=== PATIENT | female | born 1940 | race Two or more races ===

== ENCOUNTER 2025-09-06 11:16 | Inpatient (IN) | payer OTHER ==
[~2025-09-06] VITALS: Ht 154.9 cm; Wt 77.6 kg
--- NOTE | 2025-09-06 11:31 | ECG ---
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
[2025-09-06] MEDS: AMIODARONE BOLUS KIT 100 ML IV ONE (11:49)
--- NOTE | 2025-09-06 11:59 | ED.PDOC ---
History of Present Illness HPI Comments 84F presents to the ER w/ w/ prior MHx of HTN and the c/c of palpitations. Pt reports on sitting down and watching T.V. yesterday when she had a sudden onset of palpitations and "feels shaky". Pt states on having similar symptoms in November of 2024 for which was undiagnosed. Pt does have mild bilateral LE edema. Denies any other symptoms at this time. Denies chills, fever, N/V/D, SOB. Denies any other associated symptom's, modifiers, or recent injuries or sick contact at this time. Chief Complaint: Palpitations Time Seen by MD: 12:00 Reviewed Notes: Nurses Notes, Medications, Allergies Allergies: Coded Allergies: Simvastatin (Verified Allergy, Unknown, 09/06/25) Information Source: Patient Mode of Arrival: Ambulatory Severity: Moderate Timing: Hours Duration: Since onset, Hours Prehospital treatment: None Past Medical History PAST MEDICAL HISTORY: HTN Surgical History: Denies all surgeries RAILROAD CAR CHECKER History: No Pertinent RAILROAD CAR CHECKER History Family History Family History: Reviewed,noncontributory to illness, Unknown Social History Smoker: Non-Smoker Alcohol: Denies ETOH Use Drugs: Denies Drug Use Lives In: Home Constitutional: denies: chills, diaphoresis, fatigue, fever, malaise, sweats, weakness, others EENTM: denies: blurred vision, double vision, ear bleeding, ear discharge, ear drainage, ear pain, ear ringing, eye pain, eye redness, hearing loss, mouth pain, mouth swelling, nasal discharge, nose bleeding, nose congestion, nose pain, photophobia, tearing, throat pain, throat swelling, voice changes, others Respiratory: denies: cough, hemoptysis, orthopnea, SOB at rest, shortness of breath, SOB with excertion, stridor, wheezing, others Cardiovascular: reports: edema (bilateral LE), palpitations; denies: chest pain, dizzy spells, diaphoresis, Dyspnea on exertion, irregular heart beat, left arm pain, lightheadedness, PND, syncope, others Gastrointestinal: denies: abdomen distended, abdominal pain, blood streaked bowels, constipated, diarrhea, dysphagia, difficulty swallowing, hematemesis, melena, nausea, poor appetite, poor fluid intake, rectal bleeding, rectal pain, vomiting, others Genitourinary: denies: abnormal vagina bleeding, burning, dyspareunia, dysuria, flank pain, frequency, hematuria, incontinence, pain, , vagina discharge, urgency, others Neurological: denies: dizziness, fainting, headache, left sided numbness, left sided weakness, numbness, paresthesia, pre-existing deficit, right sided numbness, right sided weakness, seizure, speech problems, tingling, tremors, weakness, others Musculoskeletal: denies: back pain, gout, joint pain, joint swelling, muscle pain, muscle stiffness, neck pain, others Integumetry: denies: bruises, change in color, change in hair/nails, dryness, laceration, lesions, lumps, rash, wounds, others Allergic/Immunocompromised: denies: Difficulty Healing, Frequent Infections, Hives, Itching, others Hematologic/Lymphatic: denies: anemia, blood clots, easy bleeding, easy bruising, swollen glands, others Endocrine: denies: excessive hunger, excessive sweating, excessive thirst, excessive urination, flushing, intolerance to cold, intolerance to heat, unexplained weight gain, unexplained weight loss, others Psychiatric: denies: anxiety, bipolar disorder, depression, hopeless, panic disorder, schizophrenia, sleepless, suicidal, others All Other Systems: Reviewed and Negative Physical Exam General Appearance: Moderate Distress, Normal HEENT: Normal ENT Inspection, Pharynx Normal, TMs Normal Neck: Full Range of Motion, Non-Tender, Normal, Normal Inspection Respiratory: Chest Non-Tender, Lungs Clear, No Accessory Muscle Use, No Respiratory Distress, Normal Breath Sounds Cardiovascular: Irregular, No Edema, No JVD, No Murmur, No Gallop, Normal Peripheral Pulses Breast Exam: Deferred Gastrointestinal: No Organomegaly, Non Tender, No Pulsatile Mass, Normal Bowel Sounds, Soft Genitalia: Deferred Pelvic: Deferred Rectal: Deferred Extremities: No calf tenderness, Normal capillary refill, Normal inspection, Normal range of motion, Non-tender, No pedal edema Musculoskeletal : Apperance: Normal Neurologic: Alert, 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 Was a procedure done?: No EKG EKG : Pulse Rate (adult): 131 [place]: Normal Cardiac Rhythm: Afib Block: None Hypertrophy: None ST: Normal Comments RVR Differential Dx Considerations may include: Atrial fibrillation Electrolyte imbalance X-Ray, Labs, Meds, VS Vital Signs Date Time Temp Pulse Resp B/P (MAP) Pulse Ox O2 Delivery O2 Flow Rate FiO2 09/06/25 15:04 104 16 124/72 (89) 96 09/06/25 14:26 105 09/06/25 13:05 119 09/06/25 12:36 111 09/06/25 12:12 98.4 100 15 116/52 (73) 95 98.4 09/06/25 11:59 131 09/06/25 11:35 Room Air* 0 21 09/06/25 11:20 97.5 142 20 145/100 94 97.5 09/06/25 11:20 131 Lab Test 09/06/25 15:36 09/06/25 12:58 09/06/25 11:56 Range/Units Troponin I High Sensitivity 6 5 6 </=34 ng/L White Blood Count 6.0 4.4-10.8 10^3/uL Red Blood Count 3.83 L 4.0-5.20 10^6/uL Hemoglobin 12.6 12.2-16.2 g/dL Hematocrit 37.8 36.0-46.0 % Mean Corpuscular Volume 98.7 80.0-100.0 fL Mean Corpuscular Hemoglobin 32.8 H 28.0-32.0 pg Mean Corpuscular Hemoglobin Concent 33.2 32.0-36.0 g/dL Red Cell Distribution Width 13.5 11.8-14.3 % Platelet Count 248 140-450 10^3/uL Mean Platelet Volume 8.2 6.9-10.8 fL Neutrophils (%) (Auto) 76.4 37.0-80.0 % Lymphocytes (%) (Auto) 13.3 10.0-50.0 % Monocytes (%) (Auto) 7.9 0.0-12.0 % Eosinophils (%) (Auto) 2.0 0.0-7.0 % Basophils (%) (Auto) 0.4 0.0-2.0 % Neutrophils # (Auto) 4.6 1.6-8.6 10 ^3/uL Lymphocytes # (Auto) 0.8 0.4-5.4 10 ^3/uL Monocytes # (Auto) 0.5 0-1.3 10 ^3/uL Eosinophils # (Auto) 0.1 0-0.8 10 ^3/uL Basophils # (Auto) 0 0-0.2 10 ^3/uL Nucleated Red Blood Cells 0.2 % Sodium Level 143 136-145 mmol/L Potassium Level 4.4 3.5-5.1 mmol/L Chloride Level 110 H 98-107 mmol/L Carbon Dioxide Level 20 20-31 mmol/L Anion Gap 13 5-15 Blood Urea Nitrogen 19 9-23 mg/dL Creatinine 1.15 H 0.550-1.02 mg/dL Glomerular Filtration Rate Calc 47 >90 mL/min BUN/Creatinine Ratio 16.5 10.0-20.0 Serum Glucose 122 H 74-106 mg/dL Calcium Level 10.2 8.7-10.4 mg/dL Current Medications Medications (Trade) Dose Ordered Sig/Franci Route Start Time Stop Time Status Last Admin Amiodarone HCl 100 ml @ 600 mls/hr ONCE ONCE IV 09/06/25 11:45 09/06/25 11:54 DC 09/06/25 11:49 Amiodarone HCl 250 ml @ 33.33 mls/ hr Q7H31M ONCE IV 09/06/25 12:00 09/06/25 19:30 09/06/25 12:14 [place] [id number] Ph: [phone] DIAGNOSTIC IMAGING Diagnostic Imaging Report : [id number] Signed PATIENT: MARI WAN ACCT: [id number] UNIT: [id number] : 1940 LOC: ER ROOM / BED: / AGE / SEX: 84 / F ADM STATUS: REG ER SERVICE 1144 ORDERING PHYSICIAN: FORTUNATO MAGANA MD PROCEDURE(s): CXRP - CHEST PORTABLE REASON: sob ORDER NUMBER(s): [id number], ACCESSION NUMBER(s): [id number] XY CHEST PORTABLE, HISTORY: sob COMPARISON: None None TECHNICAL DATA: 1 view of the chest was obtained. FINDINGS: Lines and tubes: None Cardiomediastinal silhouette: normal Pulmonary vasculature: normal Lung expansion: normal Lung airspace: normal Lung interstitium: normal Pleura: normal Pneumothorax: no Bones: Unremarkable Other: no IMPRESSION: No acute intrathoracic abnormality. ATED BY: BRYAN ISLAS MD DICTATED DATE/TIME: 09/06/251213 SIGNED BY: BRYAN ISLAS MD SIGNED DATE/TIME: 09/06/251213 CC: Patient alert. Complaining of palpitation. EKG does show atrial fibrillation. Answering questions pain Placed on amiodarone. Spoke with [place] physician. She was approved to be admitted in this hospital [phone]. Time of 1ST Reevaluation: 12:30 Reevaluation 1ST: Unchanged Patient Education/Counseling: Diagnosis, Treatment, Prognosis Family Education/Counseling: No Family Present SEPSIS Sepsis Screen Date sepsis recognized/suspect: Sep 06, 2025 Time Sepsis recognized/suspect: 1124 Recent Procedure: No On Antibiotic Therapy: No Respiratory Rate >20: No Heart Rate >90: Yes Temp<36 C (96.8 F) or >38.3 C: No SBP <90 or MAP <65 mmHG: No New Acute Mental Status Change: No Is the patient on CPAP, BIPAP,: No Physician Orders Electrocardigram (09/06/25 11:29) Electrocardigram (09/06/25 12:29) Electrocardigram (09/06/25 14:29) Chest Portable (09/06/25 11:44) Amiodarone 450mg/250ml Ae (Cordarone) (09/06/25 12:00) Vital Signs Date Time Temp Pulse Resp B/P (MAP) Pulse Ox O2 Delivery O2 Flow Rate FiO2 09/06/25 15:04 104 16 124/72 (89) 96 09/06/25 14:26 105 09/06/25 13:05 119 09/06/25 12:36 111 09/06/25 12:12 98.4 100 15 116/52 (73) 95 98.4 09/06/25 11:59 131 09/06/25 11:35 Room Air* 0 21 09/06/25 11:20 97.5 142 20 145/100 94 97.5 09/06/25 11:20 131 Laboratory Tests Test 09/06/25 11:56 White Blood Count 6.0 10^3/uL (4.4-10.8) Medications Medications Dose Ordered Sig/Franci Route Start Time Stop Time Status Last Admin Dose Admin Amiodarone HCl 100 ml @ 600 mls/hr ONCE ONCE IV 09/06/25 11:45 09/06/25 11:54 DC 09/06/25 11:49 Amiodarone HCl 250 ml @ 33.33 mls/ hr Q7H31M ONCE IV 09/06/25 12:00 09/06/25 19:30 09/06/25 12:14 Departure 1 Departure Time of Disposition: 17:24 Impression: Primary Impression: Atrial fibrillation Qualified Codes: I48.0 - Paroxysmal atrial fibrillation Disposition: ADMITTED INPATIENT Admit to: Med Surg Condition: Guarded Critical Care Note Critical Care Time?: Yes (90 min-critical care time only) Stability Stability form required: No Heart Score Heart Score: Heart Score Response (Comments) Value History Slightly Suspicious 0 EKG Normal 0 Age >65 2 Risk Factors >3 or Hx ASHD 2 Troponin Normal limit 0 Total 4 I personally scribed for FORTUNATO MAGANA MD ([email or web address]) on 09/06/25 at 11:59. Electronically submitted by Steven Slade ([email or web address]). I personally scribed for FORTUNATO MAGANA MD ([email or web address]) on 09/06/25 at 13:22. Electronically submitted by Loraine Calix ([email or web address]). FORTUNATO MAGANA MD Sep 06, 2025 11:59
--- NOTE | 2025-09-06 12:16 | DVH ---
XY CHEST PORTABLE, HISTORY: sob COMPARISON: None None TECHNICAL DATA: 1 view of the chest was obtained. FINDINGS: Lines and tubes: None Cardiomediastinal silhouette: normal Pulmonary vasculature: normal Lung expansion: normal Lung airspace: normal Lung interstitium: normal Pleura: normal Pneumothorax: no Bones: Unremarkable Other: no IMPRESSION: No acute intrathoracic abnormality.
[2025-09-06 12:22] LABS: Hematocrit 37.8 % (36.0-46.0); Hemoglobin 12.6 g/dL (12.2-16.2); Mean Corpuscular Hemoglobin 32.8 pg (28.0-32.0); Mean Corpuscular Volume 98.7 fL (80.0-100.0); Nucleated Red Blood Cells % 0.2 %
[2025-09-06 12:28] LABS: Potassium 4.4 mmol/L (3.5-5.1); Sodium 143 mmol/L (136-145)
[2025-09-06 12:29] LABS: Anion Gap 13 (5-15)
[2025-09-06 12:30] LABS: Calcium 10.2 mg/dL (8.7-10.4)
[2025-09-06 12:35] LABS: BUN/Creatinine Ratio 16.5 (10.0-20.0); Blood Urea Nitrogen 19 mg/dL (9-23); Carbon Dioxide 20 mmol/L (20-31); Chloride 110 mmol/L (98-107); Glucose 122 mg/dL (74-106)
--- NOTE | 2025-09-06 13:14 | ECG ---
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
[2025-09-06] MEDS ORDERED: ACETAMINOPHEN 325 MG TAB PO PRN (19:45)
[2025-09-06] MEDS ORDERED: ONDANSETRON HCL 4 MG/2 ML VIAL IV PRN (19:45)
[2025-09-06] MEDS ORDERED: NITROGLYCERIN 0.4 MG SL TAB SL PRN (19:45)
[2025-09-06] MEDS ORDERED: MORPHINE SULFATE INJ 2 MG/ml SYRG IV PRN (19:45)
--- NOTE | 2025-09-06 21:14 | DVHHP2 ---
History of Present Illness Reason for Visit: Palpitations History of Present Illness 84-year-old female presents for evaluation of palpitations. Patient endorses developing palpitations since yesterday afternoon around 6:00 p.m.. She states symptoms continued today and was advised by her primary care provider to present for further evaluation. No other acute complaints reported. Past Medical History Hypertension Past Surgical History Denies Family History Noncontributory Smoke: No ALCOHOL: none Drugs: None Lives: with Family Review of Systems Review of Systems Review of systems are currently negative otherwise addressed in HPI. Allergies: Coded Allergies: Simvastatin (Verified Allergy, Unknown, 09/06/25) Medications Current Medications Medications Dose Ordered Sig/Franci Route Start Time Stop Time Status Last Admin Dose Admin Ondansetron HCl 4 mg Q4HP PRN IV 09/06/25 19:45 Enoxaparin Sodium 40 mg DAILY SC 09/07/25 10:00 Acetaminophen 650 mg Q6HP PRN PO 09/06/25 19:45 Nitroglycerin 0.4 mg Q5MINP PRN SL 09/06/25 19:45 Morphine Sulfate 2 mg Q30M PRN IV 09/06/25 19:45 Exam Vital Signs Vital Signs Date Time Temp Pulse Resp B/P (MAP) Pulse Ox O2 Delivery O2 Flow Rate FiO2 09/06/25 19:43 98.6 112 14 134/51 (78) 95 98.6 09/06/25 19:30 Room Air* 0 21 Exam Gen: 84-year-old female in mild distress. Skin: Warm, dry, normal color and texture, no rash. HEENT: Normocephalic atraumatic, mucous membranes moist and pink. Neck: Cervical and supraclavicular nodes normal without enlargement, trachea is midline, thyroid gland is normal without masses. Pulmonary: Clear to auscultation and percussion bilaterally. Cardiac: Irregular rhythm Abdomen: Soft, nontender, nondistended, bowel sounds present all 4 quadrants, no guarding, no rigidity, no organomegaly. Extremities: No cyanosis, clubbing, no edema Neuro: Cranial nerves II through XII grossly intact, normal affect and speech, no focal motor deficits. Labs/Xrays ORDERING PHYSICIAN: FORTUNATO MAGANA MD PROCEDURE(s): CXRP - CHEST PORTABLE REASON: sob ORDER NUMBER(s): [id number], ACCESSION NUMBER(s): [id number] XY CHEST PORTABLE, HISTORY: sob COMPARISON: None None TECHNICAL DATA: 1 view of the chest was obtained. FINDINGS: Lines and tubes: None Cardiomediastinal silhouette: normal Pulmonary vasculature: normal Lung expansion: normal Lung airspace: normal Lung interstitium: normal Pleura: normal Pneumothorax: no Bones: Unremarkable Other: no IMPRESSION: No acute intrathoracic abnormality. Labs Test 09/06/25 15:36 09/06/25 11:56 Range/Units Troponin I High Sensitivity 6 </=34 ng/L White Blood Count 6.0 4.4-10.8 10^3/uL Red Blood Count 3.83 L 4.0-5.20 10^6/uL Hemoglobin 12.6 12.2-16.2 g/dL Hematocrit 37.8 36.0-46.0 % Mean Corpuscular Volume 98.7 80.0-100.0 fL Mean Corpuscular Hemoglobin 32.8 H 28.0-32.0 pg Mean Corpuscular Hemoglobin Concent 33.2 32.0-36.0 g/dL Red Cell Distribution Width 13.5 11.8-14.3 % Platelet Count 248 140-450 10^3/uL Mean Platelet Volume 8.2 6.9-10.8 fL Neutrophils (%) (Auto) 76.4 37.0-80.0 % Lymphocytes (%) (Auto) 13.3 10.0-50.0 % Monocytes (%) (Auto) 7.9 0.0-12.0 % Eosinophils (%) (Auto) 2.0 0.0-7.0 % Basophils (%) (Auto) 0.4 0.0-2.0 % Neutrophils # (Auto) 4.6 1.6-8.6 10 ^3/uL Lymphocytes # (Auto) 0.8 0.4-5.4 10 ^3/uL Monocytes # (Auto) 0.5 0-1.3 10 ^3/uL Eosinophils # (Auto) 0.1 0-0.8 10 ^3/uL Basophils # (Auto) 0 0-0.2 10 ^3/uL Nucleated Red Blood Cells 0.2 % Sodium Level 143 136-145 mmol/L Potassium Level 4.4 3.5-5.1 mmol/L Chloride Level 110 H 98-107 mmol/L Carbon Dioxide Level 20 20-31 mmol/L Anion Gap 13 5-15 Blood Urea Nitrogen 19 9-23 mg/dL Creatinine 1.15 H 0.550-1.02 mg/dL Glomerular Filtration Rate Calc 47 >90 mL/min BUN/Creatinine Ratio 16.5 10.0-20.0 Serum Glucose 122 H 74-106 mg/dL Calcium Level 10.2 8.7-10.4 mg/dL SEPSIS Sepsis Screen Date sepsis recognized/suspect: Sep 06, 2025 Time Sepsis recognized/suspect: 1123 Recent Procedure: No On Antibiotic Therapy: No Respiratory Rate >20: No Heart Rate >90: Yes Temp<36 C (96.8 F) or >38.3 C: No SBP <90 or MAP <65 mmHG: No New Acute Mental Status Change: No Is the patient on CPAP, BIPAP,: No Physician Orders Amiodarone 450mg/250ml Ae (Cordarone) (09/06/25 19:45) * Cardiology Consult (09/06/25:32) Basic Metabolic Panel (09/07/25 04:00) Admit (09/06/25:32) Ondansetron Hcl (Zofran) (09/06/25 19:45) Enoxaparin Sodium (Lovenox) (09/07/25 10:00) Cardiac Diet-2gna,Lofat,Lochol (09/07/25 Breakfast) Echo 2d Mode Cardiac Dop (09/06/25:32) Condition: Fair (09/06/25:32) Acetaminophen Tablet (Tylenol Tablet) (09/06/25 19:45) Bedrest With Bathroom Privileg (09/06/25:32) Nitroglycerin Sublingual (Ntrostat Subli (09/06/25 19:45) Morphine Sulfate Injection (09/06/25 19:45) Stat Ekg For Chest Pain (09/06/25:32) Notify Md Of Changes From Base (09/06/25 19:32) Compensation And Hris Analyst For 24 Hours (09/06/25 19:32) Emergency Dysrhythmia Protocol (09/06/25:32) Rhythm Strips Once Every Shift (09/06/25 19:32) Oxygen By Nasal Cannula (09/06/25 19:32) Hydrochlorothiazide Tablet (Hydrochlorot (09/07/25 10:00) Amlodipine Tablet (Norvasc Tablet) (09/07/25 10:00) Lisinopril Tablet (Zestril Tablet) (09/07/25 10:00) Pravastatin Sodium Tablet (Pravachol Tab (09/06/25 22:00) Spironolactone (Aldactone) (09/07/25 10:00) (Nf) Bisoprolol (09/07/25 10:00) Vital Signs Date Time Temp Pulse Resp B/P (MAP) Pulse Ox O2 Delivery O2 Flow Rate FiO2 09/06/25 19:43 98.6 112 14 134/51 (78) 95 98.6 09/06/25 19:30 Room Air* 0 21 09/06/25 18:00 106 17 127/68 (87) 98 09/06/25 17:33 103 09/06/25 15:04 104 16 124/72 (89) 96 09/06/25 14:26 105 Laboratory Tests Test 09/06/25 11:56 White Blood Count 6.0 10^3/uL (4.4-10.8) Medications Medications Dose Ordered Sig/Franci Route Start Time Stop Time Status Last Admin Dose Admin Amiodarone HCl 100 ml @ 600 mls/hr ONCE ONCE IV 09/06/25 11:45 09/06/25 11:54 DC 09/06/25 11:49 600 MLS/HR Amiodarone HCl 250 ml @ 33.33 mls/ hr Q7H31M ONCE IV 09/06/25 12:00 09/06/25 19:30 DC 09/06/25 12:14 33.33 MLS/HR Amiodarone HCl 250 ml @ 33.33 mls/ hr Q7H31M ONCE IV 09/06/25 19:45 09/07/25 03:15 09/06/25 19:47 33.33 MLS/HR Assessment/Plan Assessment/Plan Assessment AFib with RVR Hypertension Acute kidney injury Plan Admit the patient to telemetry to the hospitalist Continue amiodarone drip Cardiology consultation Resume home medications Continue treatment per orders. Plan discussed with: Patient My Orders Orders - MICKIE TAM Procedure Category Date Status Time * Cardiology Consult CONS 09/06/25 Transmitted 19:32 Basic Metabolic Panel LAB 09/07/25 Verified 04:00 Admit ADMIT 09/06/25 Transmitted 19:32 Ondansetron Hcl PHA 09/06/25 In Process (Zofran) 19:45 Enoxaparin Sodium PHA 09/07/25 In Process (Lovenox) 10:00 Cardiac DIET 09/07/25 Transmitted Diet-2gna,Lofat,Lochol Breakfast Echo 2d Mode Cardiac US 09/06/25 Logged DOP 19:32 Condition: Fair MAN 09/06/25 In Process 19:32 Acetaminophen Tablet PHA 09/06/25 In Process (Tylenol Tablet) 19:45 Bedrest With Bathroom MAN 09/06/25 In Process Privileg 19:32 Nitroglycerin PHA 09/06/25 In Process Sublingual (Ntrostat 19:45 Morphine Sulfate PHA 09/06/25 In Process Injection 19:45 Stat Ekg For Chest MAN 09/06/25 In Process Pain 19:32 Notify Of Changes [facility] 09/06/25 In Process From Base 19:32 Compensation And Hris Analyst For [facility] 09/06/25 In Process 24 Hours 19:32 Emergency Dysrhythmia [facility] 09/06/25 In Process Protocol 19:32 Rhythm Strips Once [facility] 09/06/25 In Process Every Shift 19:32 Oxygen By Nasal RT 09/06/25 Transmitted Cannula 19:32 Hydrochlorothiazide PHA 09/07/25 Verified Tablet (Hydrochlorot 10:00 Amlodipine Tablet PHA 09/07/25 Verified (Norvasc Tablet) 10:00 Lisinopril Tablet PHA 09/07/25 Verified (Zestril Tablet) 10:00 Pravastatin Sodium PHA 09/06/25 Verified Tablet (Pravachol Tab 22:00 Spironolactone PHA 09/07/25 Verified (Aldactone) 10:00 (Nf) Bisoprolol PHA 09/07/25 Verified 10:00 Date of Service: Sep 06, 2025 Billing Provider: MICKIE TAM Common Visit Codes: [id number] INP/OBS CARE (HIGH) MICKIE TAM Sep 06, 2025 21:13
[2025-09-06 21:38] LABS: Triglycerides 151 mg/dL (< 150)
[2025-09-06 21:39] LABS: Cholesterol 142 mg/dL (< 200); HDL Cholesterol 50 mg/dL (40-59)
[2025-09-06 21:44] VITALS: BP 106/70; PULSE 107; RESP 20; TEMP 98.1; O2SAT 97
[2025-09-06 22:45] VITALS: PULSE 107; RESP 20; O2SAT 97
[2025-09-06] MEDS ORDERED: HYDR25TA4 PO (23:05)
[2025-09-06] MEDS ORDERED: AMLO1TAB23 PO (23:06)
[2025-09-06] MEDS ORDERED: ALEN70TA74 PO (23:07)
[2025-09-06] MEDS ORDERED: POTA-36 PO (23:07)
[2025-09-06] MEDS ORDERED: BISO5TAB44 PO (23:08)
[2025-09-06] MEDS ORDERED: SPIR25TA8 PO (23:08)
[2025-09-06] MEDS ORDERED: ASPI81CH59 PO (23:09)
[2025-09-06] MEDS: PRAVASTATIN SODIUM 20 MG TAB PO SCH (23:38)
[2025-09-07] VITALS (7 sets, daily range): BP systolic 112–135; BP diastolic 64–71; PULSE 88–102; RESP 16–18; TEMP 97.9–98.2; O2SAT 94–99
[2025-09-07 06:03] LABS: Potassium 4.0 mmol/L (3.5-5.1); Sodium 143 mmol/L (136-145)
[2025-09-07 06:04] LABS: Anion Gap 11 (5-15); Calcium 9.8 mg/dL (8.7-10.4); Carbon Dioxide 23 mmol/L (20-31)
[2025-09-07 06:06] LABS: Chloride 109 mmol/L (98-107)
[2025-09-07 06:10] LABS: BUN/Creatinine Ratio 13.5 (10.0-20.0); Blood Urea Nitrogen 14 mg/dL (9-23)
[2025-09-07 06:12] LABS: Glucose 107 mg/dL (74-106)
--- NOTE | 2025-09-07 07:38 | ECG ---
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
--- NOTE | 2025-09-07 09:21 | DVHINCON2 ---
Date Seen: Sep 07, 2025 Referring Physician Star Quinn NP Reason for Consultation afib History of Present Illness Juan Daniel Guardado is a 84-year-old female patient who presents to ED with chief complaint of atrial fibrillation since by smart watch which started on Saturday09/05/2025 at 11:00 a.m.. Patient was completely asymptomatic. She has been using the watch for multiple years. She had a similar episode on November 2024, evaluated by power plant engineer indicated beta-blockers (initially atenolol then bisoprolol) and no blood thinners at that time. Patient is compliant with her medication. Denies any other associated symptom. Cardiology consulted for atrial fibrillation RVR. Past medical history: Hypertension, dyslipidemia, paroxysmal atrial fibrillation 1st diagnosed in November 2024 treated with oral medication has been normal sinus rhythm until 09/05/2025, osteopenia, IBS with diarrhea. Surgical history: Cholecystectomy Family history: Mother had [place] in heart disease in mother side. Social history: Lives in [place] with family (next of kin is son). Denies current tobacco, alcohol and other drug abuse Allergies: Simvastatin Home medication: Lisinopril 40 mg p.o. daily, hydrochlorothiazide 25 mg p.o. daily, bisoprolol 5 mg p.o. daily, spironolactone 25 mg p.o. daily, alendronate, amlodipine 5 mg p.o. daily, pravastatin, calcium Patient seen and examined at bedside. Currently has no new complaints. Past Medical History Per HPI Past Surgical History Per HPI Family History: Patient reports no known family medical history. Family History Per HPI Social History Per HPI Allergies: Coded Allergies: Simvastatin (Verified Allergy, Unknown, 09/06/25) Home Meds Reported Medications Aspirin (Aspirin Low Dose) 81 Mg Chw, 1 TAB PO DAILY, #30 TAB 3 Refills 09/06/25 Spironolactone (Spironolactone) 25 Mg Tab, 1 TAB PO DAILY, #90 TAB 1 Refill 09/06/25 Bisoprolol Fumarate (Bisoprolol Fumarate) 5 Mg Tab, 1 TAB PO DAILY, #30 TAB 5 Refills 09/06/25 Alendronate Sodium (Alendronate Sodium) 70 Mg Tab, 1 TAB PO QWEEKLY, #4 TAB 3 Refills 09/06/25 Potassium Chloride (POTASSIUM CHLORIDE CR) 10 Meq Tb, 10 MEQ PO BID, TAB 09/06/25 Amlodipine Besylate (Amlodipine Besylate) 10 Mg Tab, 1 TAB PO DAILY, #30 TAB 5 Refills 09/06/25 Hydrochlorothiazide (Hydrochlorothiazide) 25 Mg Tab, 1 TAB PO DAILY, #30 TAB 5 Refills 09/06/25 Current Medications Current Medications Medications (Trade) Dose Ordered Sig/Franci Route PRN Reason Start Time Stop Time Status Last Admin Ondansetron HCl (Zofran) 4 mg Q4HP PRN IV NAUSEA / VOMITING 09/06/25 19:45 Enoxaparin Sodium (Lovenox) 40 mg DAILY SC 09/07/25 10:00 Acetaminophen (Tylenol Tablet) 650 mg Q6HP PRN PO PAIN SCALE 1-3 OR TEMP>100.4 09/06/25 19:45 Nitroglycerin (Ntrostat Sublingual) 0.4 mg Q5MINP PRN SL FOR CHEST PAIN 09/06/25 19:45 Morphine Sulfate 2 mg Q30M PRN IV FOR CHEST PAIN 09/06/25 19:45 Hydrochlorothiazide (hydroCHLOROthiazide TABLET) 25 mg DAILY PO 09/07/25 10:00 Amlodipine Besylate (Norvasc Tablet) 10 mg DAILY PO 09/07/25 10:00 Lisinopril (Zestril Tablet) 40 mg DAILY PO 09/07/25 10:00 Pravastatin Sodium (Pravachol Tablet) 80 mg HS PO 09/06/25 22:00 09/06/25 23:38 Spironolactone (Aldactone) 12.5 mg DAILY PO 09/07/25 10:00 Atenolol (Tenormin Tablet) 50 mg DAILY PO 09/07/25 10:00 Amiodarone HCl 250 ml @ 16.67 mls/ hr Q15H IV 09/07/25 01:45 09/07/25 19:45 09/07/25 02:10 Review of Systems Per HPI Vital Signs Vital Signs Date Time Temp Pulse Resp B/P (MAP) Pulse Ox O2 Delivery O2 Flow Rate FiO2 09/07/25 08:44 98.0 99 17 135/68 (90) 96 98.0 09/06/25 22:45 Room Air* 0 21 Physical Exam Patient lying in bed, in no acute distress General: Lucid, afebrile, mucosae are moist Cardiovascular: Variable S1 and S2. No murmurs, gallops or rubs Respiratory: Normal ventilation mechanics. Clear lung sounds on auscultation Abdomen: Soft, nontender, no organomegaly, normal bowel sounds MSK/skin: Mobilizes 4 limbs. Skin is dry and warm Neurological: Oriented in 3 spheres. No motor no sensitive deficits. Pupils are isocoric and reactive Labs/Diagnostic Data Labs Test 09/07/25 04:43 09/06/25 15:36 09/06/25 11:56 Range/Units Sodium Level 143 136-145 mmol/L Potassium Level 4.0 3.5-5.1 mmol/L Chloride Level 109 H 98-107 mmol/L Carbon Dioxide Level 23 20-31 mmol/L Anion Gap 11 5-15 Blood Urea Nitrogen 14 9-23 mg/dL Creatinine 1.04 H 0.550-1.02 mg/dL Glomerular Filtration Rate Calc 53 >90 mL/min BUN/Creatinine Ratio 13.5 10.0-20.0 Serum Glucose 107 H 74-106 mg/dL Calcium Level 9.8 8.7-10.4 mg/dL Troponin I High Sensitivity 6 </=34 ng/L Triglycerides Level 151 H < 150 mg/dL Cholesterol Level 142 < 200 mg/dL LDL Cholesterol 70 < 100 mg/dL HDL Cholesterol 50 40-59 mg/dL Thyroid Stimulating Hormone (TSH) 1.59 0.55-4.78 uIU/mL White Blood Count 6.0 4.4-10.8 10^3/uL Red Blood Count 3.83 L 4.0-5.20 10^6/uL Hemoglobin 12.6 12.2-16.2 g/dL Hematocrit 37.8 36.0-46.0 % Mean Corpuscular Volume 98.7 80.0-100.0 fL Mean Corpuscular Hemoglobin 32.8 H 28.0-32.0 pg Mean Corpuscular Hemoglobin Concent 33.2 32.0-36.0 g/dL Red Cell Distribution Width 13.5 11.8-14.3 % Platelet Count 248 140-450 10^3/uL Mean Platelet Volume 8.2 6.9-10.8 fL Neutrophils (%) (Auto) 76.4 37.0-80.0 % Lymphocytes (%) (Auto) 13.3 10.0-50.0 % Monocytes (%) (Auto) 7.9 0.0-12.0 % Eosinophils (%) (Auto) 2.0 0.0-7.0 % Basophils (%) (Auto) 0.4 0.0-2.0 % Neutrophils # (Auto) 4.6 1.6-8.6 10 ^3/uL Lymphocytes # (Auto) 0.8 0.4-5.4 10 ^3/uL Monocytes # (Auto) 0.5 0-1.3 10 ^3/uL Eosinophils # (Auto) 0.1 0-0.8 10 ^3/uL Basophils # (Auto) 0 0-0.2 10 ^3/uL Nucleated Red Blood Cells 0.2 % Assessment Paroxysmal atrial fibrillation with RVR (chads Vasc 4) - secondary coagulability state ADELE hemodynamically mediated (VMN) Hypertension Dyslipidemia Osteopenia IBS with diarrhea Plan/Recommendation Completed EKG which shows atrial fibrillation at 105 beats per minute with narrow QRS and no ST-elevation. Troponins x3 negative. Patient completely asymptomatic Ordered echocardiogram Patient currently on telemetry which shows atrial fibrillation with RVR Patient currently on amiodarone drip Continued home medication. Switch bisoprolol two atenolol Anticoagulated with therapeutic enoxaparin Goals of care discussed with patient for over 18 minutes: Full code status Discussed case with Dr. South, patient and nurses: Patient currently on telem etry status. Continues presenting atrial fibrillation with RVR on telemetry. Ordered echocardiogram. Continue with amiodarone drip and therapeutic enoxaparin. Patient never had ischemic workup done, depending on results of echocardiogram may indicate ischemia workup Plan discussed with: Patient, Other (Nurses) NYHA Physical activity limitations: Class1(None)absent sob, Date of Service: Sep 07, 2025 Billing Provider: JAMSHID GARCIA Sr., MD Cardiology Common Codes: [id number] INP/OBS CARE (High) Cardiology Secondary Visit Cod: [id number] CARE PLAN 30 MINUTES YOVANI ROB RESIDENT Sep 07, 2025 09:21
[2025-09-07] MEDS ORDERED: hydroCHLOROthiazide 25 MG TAB PO SCH (10:00)
[2025-09-07] MEDS ORDERED: ENOXAPARIN SOD 40 MG/0.4 ML SYRINGE SC SCH (10:00)
[2025-09-07] MEDS ORDERED: LISINOPRIL 20 MG TAB PO SCH (10:00)
[2025-09-07 11:01] LABS: Hematocrit 38.6 % (36.0-46.0); Hemoglobin 13.2 g/dL (12.2-16.2); Mean Corpuscular Hemoglobin 33.1 pg (28.0-32.0); Mean Corpuscular Volume 97.1 fL (80.0-100.0); Nucleated Red Blood Cells % 0.1 %
--- NOTE | 2025-09-07 11:12 | DVHPN2 ---
Progress Note Date Seen: Sep 07, 2025 Medical Necessity Reason Pt with a Central, PICC or Fol: No Subjective Patient reports: No new complaints Review of Systems: HEENT:Normal, CVS:Normal, RESPIRATORY:Normal, GI:Normal, :Normal, MSK:Normal, NEURO:Normal Objective vital signs Vital Sign Date Time Temp Pulse Resp B/P (MAP) Pulse Ox O2 Delivery O2 Flow Rate FiO2 09/07/25 08:44 98.0 99 17 135/68 (90) 96 98.0 09/06/25 22:45 Room Air* 0 21 Total Intake and Output 09/06/25 09/06/25 09/07/25 15:00 23:00 07:00 Intake Total 300 ml Balance 300 ml medications Current Medications Medications Dose Ordered Sig/Franci Route Start Time Stop Time Status Last Admin Dose Admin Ondansetron HCl 4 mg Q4HP PRN IV 09/06/25 19:45 Acetaminophen 650 mg Q6HP PRN PO 09/06/25 19:45 Nitroglycerin 0.4 mg Q5MINP PRN SL 09/06/25 19:45 Morphine Sulfate 2 mg Q30M PRN IV 09/06/25 19:45 Hydrochlorothiazide 25 mg DAILY PO 09/07/25 10:00 Amlodipine Besylate 10 mg DAILY PO 09/07/25 10:00 Lisinopril 40 mg DAILY PO 09/07/25 10:00 Pravastatin Sodium 80 mg HS PO 09/06/25 22:00 09/06/25 23:38 80 MG Spironolactone 12.5 mg DAILY PO 09/07/25 10:00 Atenolol 50 mg DAILY PO 09/07/25 10:00 Amiodarone HCl 250 ml @ 16.67 mls/ hr Q15H IV 09/07/25 01:45 09/07/25 19:45 09/07/25 02:10 16.67 MLS/HR Enoxaparin Sodium 70 mg Q12HR SC 09/07/25 10:00 Examination: GENERAL:Normal, HEENT:Normal, NECK:Normal, LUNGS:Normal, CVS:Normal, ABDOMEN:Normal, MSK:Normal, SKIN:Normal, NEURO:Normal, :Normal laboratory and microbiology Laboratory Tests 09/07/25 10:23 09/07/25 04:43 Test 09/07/25 04:43 Range/Units Serum Glucose 107 H 74-106 mg/dL Problem List/Assessment/Plan Problem List/Assessment/Plan #1 a fib with rvr: on amiodarone drip, lovenox #2 htn #3 obesity #4 hyperlipidemia advance care planning- full code- time spent 18 mins unstable for transfer Plan discussed with: Patient My Orders My Orders Orders - MICKIE ADEN MD Procedure Category Date Status Time Lisinopril Tablet PHA 09/08/25 Verified (Zestril Tablet) 10:00 Urinalysis LAB 09/07/25 Uncollected 11:08 Basic Metabolic Panel LAB 09/08/25 Verified 06:00 Magnesium LAB 09/08/25 Verified 05:00 Date of Service: Sep 07, 2025 Billing Provider: MICKIE ADEN MD Common Visit Codes: [id number] INP/OBS CARE(HIGH) Secondary Visit Codes: [id number] CARE PLAN 30 MINUTES MICKIE ADEN MD Sep 07, 2025 11:12
[2025-09-07 11:16] LABS: INR 1.06 (0.9-1.15); Partial Thromboplastin Time 25.7 SEC (24.5-34.5); Prothrombin Time 11.2 sec (9.3-11.8)
[2025-09-07 11:18] LABS: Magnesium 1.6 mg/dL (1.6-2.6)
[2025-09-07] MEDS: SPIRONOLACTONE 25 MG TAB PO SCH (12:15)
[2025-09-07] MEDS: ATENOLOL 25 MG TAB PO SCH (12:16)
[2025-09-07] MEDS: ENOXAPARIN SOD 80 MG/0.8ML SYRINGE SC SCH (12:18)
[2025-09-07 12:43] LABS: Urine Protein, UAD Negative (Negative)
[2025-09-07 12:58] LABS: Amphetamine Screen, Urine Neg (NEGATIVE); Barbiturate Scree,Urine Neg (NEGATIVE); Benzodiazephine Screen, Urine Neg (NEGATIVE); Cannabinoid Screen, Urine Neg (NEGATIVE); Cocaine Screen, Urine Neg (NEGATIVE); Opiate Scree,Urine Neg (NEGATIVE); Phencyclidine Screen, Urine Neg (NEGATIVE)
--- NOTE | 2025-09-07 22:18 | DVHSR ---
APPROVED REPORT EXAM: Two-dimensional and M-mode echocardiogram with Doppler and color Doppler. Blood Pressure: 125/71 mmHg INDICATION afib RISK FACTORS Height: 5'1, Weight: 165 DIMENSIONS LVDd4.0 (3.8-5.7cm)LA (2D)5.0 (1.9-4.0cm)Aortic Root2.9 (2.0-3.7cm) LVDs2.9 (2.5-4.0cm)LA (MM) (1.9-4.0cm)Aortic Cusp Exc1.1 (1.5-2.0cm) EF (%) 50.0 (55-70%)Rt. Atrium3.7 (1.9-4.0cm)Asc. Aorta cm IVSd1.1 (0.7-1.1cm)RV (D)3.3 (1.8-2.4cm) PWd0.9 (0.7-1.1cm) Mitral Valve MitralMitral Stenosis E wave1.04m/sMV Mean GR.2mmHg A wavem/sMV Peak GR.107mmHg E/A ratio0.02D MVAcm2 DECEL [id number] 1/2 Timems Aortic Valve Aortic ValveAortic Stenosis V10.80m/Monika Mean GR.5mmHg V21.35m/Monika Peak GR.7mmHg LVOT Diameter1.9 (1.8-2.4cm)Doppler AVA1.68cm2 Tricuspid Valve TR Velocity2.80m/s [id number] Other Information Technically limited study due to HR, body habitus.patient position. 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
[2025-09-07] MEDS: HYALURONIDASE 150 UNIT/1 ML SUBCUT ONE (22:21)
--- NOTE | 2025-09-07 23:45 | DVHINCON2 ---
Date Seen: Sep 07, 2025 Referring Physician Star Quinn NP Reason for Consultation afib History of Present Illness This is a 84-year-old female with a PMH of Hypertension, dyslipidemia, paroxysmal atrial fibrillation 1st diagnosed in November 2024 treated with oral medication has been normal sinus rhythm until 09/05/2025, osteopenia, IBS with diarrhea who presents to ED with a complaint of atrial fibrillation since by smart watch which started on Saturday09/05/2025 at 11:00 a.m. Patient was completely asymptomatic. She has been using the watch for multiple years. She had a similar episode on November 2024, evaluated by oracle database analyst indicated beta- blockers (initially atenolol then bisoprolol) and no blood thinners at that time. Patient is compliant with her medication. Chest x-ray shows NAD.Denies any other associated symptom. Cardiology was consulted for atrial fibrillation RVR. Family History: Patient reports no known family medical history. Allergies: Coded Allergies: Simvastatin (Verified Allergy, Unknown, 09/06/25) Home Meds Reported Medications Aspirin (Aspirin Low Dose) 81 Mg Chw, 1 TAB PO DAILY, #30 TAB 3 Refills 09/06/25 Spironolactone (Spironolactone) 25 Mg Tab, 1 TAB PO DAILY, #90 TAB 1 Refill 09/06/25 Bisoprolol Fumarate (Bisoprolol Fumarate) 5 Mg Tab, 1 TAB PO DAILY, #30 TAB 5 Refills 09/06/25 Alendronate Sodium (Alendronate Sodium) 70 Mg Tab, 1 TAB PO QWEEKLY, #4 TAB 3 Refills 09/06/25 Potassium Chloride (POTASSIUM CHLORIDE CR) 10 Meq Tb, 10 MEQ PO BID, TAB 09/06/25 Amlodipine Besylate (Amlodipine Besylate) 10 Mg Tab, 1 TAB PO DAILY, #30 TAB 5 Refills 09/06/25 Hydrochlorothiazide (Hydrochlorothiazide) 25 Mg Tab, 1 TAB PO DAILY, #30 TAB 5 Refills 09/06/25 Current Medications Current Medications Medications (Trade) Dose Ordered Sig/Franci Route PRN Reason Start Time Stop Time Status Last Admin Ondansetron HCl (Zofran) 4 mg Q4HP PRN IV NAUSEA / VOMITING 09/06/25 19:45 Enoxaparin Sodium (Lovenox) 40 mg DAILY SC 09/07/25 10:00 09/07/25 09:21 DC Acetaminophen (Tylenol Tablet) 650 mg Q6HP PRN PO PAIN SCALE 1-3 OR TEMP>100.4 09/06/25 19:45 Nitroglycerin (Ntrostat Sublingual) 0.4 mg Q5MINP PRN SL FOR CHEST PAIN 09/06/25 19:45 Morphine Sulfate 2 mg Q30M PRN IV FOR CHEST PAIN 09/06/25 19:45 Hydrochlorothiazide (hydroCHLOROthiazide TABLET) 25 mg DAILY PO 09/07/25 10:00 09/07/25 11:10 DC Amlodipine Besylate (Norvasc Tablet) 10 mg DAILY PO 09/07/25 10:00 09/07/25 11:11 DC Lisinopril (Zestril Tablet) 40 mg DAILY PO 09/07/25 10:00 09/07/25 11:11 DC Pravastatin Sodium (Pravachol Tablet) 80 mg HS PO 09/06/25 22:00 09/06/25 23:38 Spironolactone (Aldactone) 12.5 mg DAILY PO 09/07/25 10:00 09/07/25 12:15 Atenolol (Tenormin Tablet) 50 mg DAILY PO 09/07/25 10:00 09/07/25 12:16 Amiodarone HCl 250 ml @ 16.67 mls/ hr Q15H IV 09/07/25 01:45 09/07/25 19:45 09/07/25 17:30 Enoxaparin Sodium (Lovenox) 70 mg Q12HR SC 09/07/25 10:00 09/07/25 12:18 Lisinopril (Zestril Tablet) 10 mg DAILY PO 09/08/25 10:00 Review of Systems Per HPI Vital Signs Vital Signs Date Time Temp Pulse Resp B/P (MAP) Pulse Ox O2 Delivery O2 Flow Rate FiO2 09/07/25 16:35 98.0 98 16 116/64 (81) 99 98.0 09/07/25 08:00 Room Air* 0 21 Physical Exam GENERAL: Alert and oriented x 3. No acute distress. EYES: PERRL, EOMI. Anicteric. HENT: Moist mucous membranes. LUNGS: Clear to auscultation bilaterally. CARDIOVASCULAR: Regular rate and rhythm. ABDOMEN: Soft, nontender and nondistended. EXTREMITIES: No edema. NEUROLOGIC: No focal neurological deficits. SKIN: Warm, dry. Labs/Diagnostic Data Labs Test 09/07/25 12:22 09/07/25 12:21 09/07/25 10:23 09/07/25 10:12 Range/Units Urine Color Light-yellow Yellow Urine Clarity Clear Clear Urine pH 5.5 5.0-9.0 Urine Specific [place] 1.009 1.001-1.035 Urine Protein Negative Negative Urine Ketones Negative Negative Urine Blood Negative Negative /uL Urine Nitrite Negative Negative Urine Bilirubin Negative Negative Urine Urobilinogen Normal Negative mg/dL Urine Leukocyte Esterase Negative Negative /uL Urine RBC <1 0 - 4 /hpf Urine Microscopic WBC 1 0-5 /HPF Urine Squamous Epithelial Cells Few <5 /hpf Urine Bacteria None seen None Seen /hpf Urine Glucose Normal Normal mg/dL Urine Opiates Screen Neg NEGATIVE Urine Fentanyl Screen Neg NEGATIVE Urine Barbiturates Screen Neg NEGATIVE Urine Phencyclidine Screen Neg NEGATIVE Urine Amphetamines Screen Neg NEGATIVE Urine Benzodiazepines Screen Neg NEGATIVE Urine Cocaine Screen Neg NEGATIVE Urine Cannabinoids Screen Neg NEGATIVE White Blood Count 6.4 4.4-10.8 10^3/uL Red Blood Count 3.98 L 4.0-5.20 10^6/uL Hemoglobin 13.2 12.2-16.2 g/dL Hematocrit 38.6 36.0-46.0 % Mean Corpuscular Volume 97.1 80.0-100.0 fL Mean Corpuscular Hemoglobin 33.1 H 28.0-32.0 pg Mean Corpuscular Hemoglobin Concent 34.1 32.0-36.0 g/dL Red Cell Distribution Width 13.7 11.8-14.3 % Platelet Count 281 140-450 10^3/uL Mean Platelet Volume 8.2 6.9-10.8 fL Neutrophils (%) (Auto) 82.6 H 37.0-80.0 % Lymphocytes (%) (Auto) 8.2 L 10.0-50.0 % Monocytes (%) (Auto) 6.7 0.0-12.0 % Eosinophils (%) (Auto) 2.3 0.0-7.0 % Basophils (%) (Auto) 0.2 0.0-2.0 % Neutrophils # (Auto) 5.3 1.6-8.6 10 ^3/uL Lymphocytes # (Auto) 0.5 0.4-5.4 10 ^3/uL Monocytes # (Auto) 0.4 0-1.3 10 ^3/uL Eosinophils # (Auto) 0.1 0-0.8 10 ^3/uL Basophils # (Auto) 0 0-0.2 10 ^3/uL Nucleated Red Blood Cells 0.1 % Prothrombin Time 11.2 9.3-11.8 sec Prothrombin Time INR 1.06 0.9-1.15 Activated Partial Thromboplast Time 25.7 24.5-34.5 SEC Phosphorus Level 3.7 2.4-5.1 mg/dL Magnesium Level 1.6 1.6-2.6 mg/dL B-Type Natriuretic Peptide 186.63 0-100 pg/mL Vitamin B12 Level 821 211-911 pg/mL Vitamin D 25-Hydroxy 42.7 30.0-100 ng/mL Hemoglobin A1c 5.6 <5.7 % A1C Test 09/07/25 04:43 09/06/25 15:36 Range/Units Sodium Level 143 136-145 mmol/L Potassium Level 4.0 3.5-5.1 mmol/L Chloride Level 109 H 98-107 mmol/L Carbon Dioxide Level 23 20-31 mmol/L Anion Gap 11 5-15 Blood Urea Nitrogen 14 9-23 mg/dL Creatinine 1.04 H 0.550-1.02 mg/dL Glomerular Filtration Rate Calc 53 >90 mL/min BUN/Creatinine Ratio 13.5 10.0-20.0 Serum Glucose 107 H 74-106 mg/dL Calcium Level 9.8 8.7-10.4 mg/dL Troponin I High Sensitivity 6 </=34 ng/L Triglycerides Level 151 H < 150 mg/dL Cholesterol Level 142 < 200 mg/dL LDL Cholesterol 70 < 100 mg/dL HDL Cholesterol 50 40-59 mg/dL Thyroid Stimulating Hormone (TSH) 1.59 0.55-4.78 uIU/mL Assessment Paroxysmal atrial fibrillation with RVR (chads Vasc 4) - secondary coagulability state. ADELE hemodynamically mediated (VMN). Hypertension. Dyslipidemia. Osteopenia. IBS with diarrhea. Plan/Recommendation I agree with your ongoing assessment and care of plan. Patient has been seen by Rosmery Khoury Resident on my behalf, we have discussed the plan with the patient Completed EKG which shows atrial fibrillation at 105 beats per minute with narrow QRS and no ST-elevation. Troponins x3 negative. Patient completely asymptomatic. Ordered echocardiogram. Patient currently on telemetry which shows atrial fibrillation with RVR. Patient currently on amiodarone drip. Continued home medication. Switch bisoprolol two atenolol. Anticoagulated with therapeutic enoxaparin. Additional plan as per the hospital course. Plan discussed with: Patient NYHA Physical activity limitations: NA Date of Service: Sep 07, 2025 Billing Provider: CHANTE WEBSTER MD Cardiology Common Codes: [id number] INP/OBS CARE (High) Cardiology Consultation Codes: [id number] CONSULT <45MIN CHANTE WEBSTER MD Sep 07, 2025 17:53
[2025-09-08] VITALS (16 sets, daily range): BP systolic 97–130; BP diastolic 39–71; PULSE 44–106; RESP 12–20; TEMP 97.8–98.2; O2SAT 92–99
[2025-09-08 06:45] LABS: Anion Gap 10 (5-15); Carbon Dioxide 23 mmol/L (20-31); Chloride 106 mmol/L (98-107); Potassium 4.2 mmol/L (3.5-5.1); Sodium 139 mmol/L (136-145)
[2025-09-08 06:47] LABS: Calcium 9.7 mg/dL (8.7-10.4)
[2025-09-08 06:51] LABS: BUN/Creatinine Ratio 15.6 (10.0-20.0); Blood Urea Nitrogen 19 mg/dL (9-23)
[2025-09-08 06:52] LABS: Glucose 112 mg/dL (74-106); Magnesium 1.7 mg/dL (1.6-2.6)
--- NOTE | 2025-09-08 09:50 | DVHPNRES ---
Progress Note Date Seen: Sep 08, 2025 Resident Creating Document: YOVANI ROB RESIDENT Medical Necessity Reason Pt with a Central, PICC or Fol: No Subjective Review of Systems Juan Daniel Guardado is a 84-year-old female patient who presents to ED with chief complaint of atrial fibrillation since by smart watch which started on Saturday09/05/2025 at 11:00 a.m.. Patient was completely asymptomatic. She has been using the watch for multiple years. She had a similar episode on November 2024, evaluated by general maintenance helper indicated beta-blockers (initially atenolol then bisoprolol) and no blood thinners at that time. Patient is compliant with her medication. Denies any other associated symptom. Cardiology consulted for atrial fibrillation RVR. Past medical history: Hypertension, dyslipidemia, paroxysmal atrial fibrillation 1st diagnosed in November 2024 treated with oral medication has been normal sinus rhythm until 09/05/2025, osteopenia, IBS with diarrhea. Surgical history: Cholecystectomy Family history: Mother had [place] in heart disease in mother side. Social history: Lives in [place] with family (next of kin is son). Denies current tobacco, alcohol and other drug abuse Allergies: Simvastatin Home medication: Lisinopril 40 mg p.o. daily, hydrochlorothiazide 25 mg p.o. daily, bisoprolol 5 mg p.o. daily, spironolactone 25 mg p.o. daily, alendronate, amlodipine 5 mg p.o. daily, pravastatin, calcium Patient seen and examined at bedside. Currently has no new complaints. Patient's persists with atrial fibrillation, planning on completing ALEXYS and electrical cardioversion on 09/08/2025. Objective vital signs Vital Sign Date Time Temp Pulse Resp B/P (MAP) Pulse Ox O2 Delivery O2 Flow Rate FiO2 09/08/25 08:37 97.8 54 16 130/67 (88) 94 97.8 09/07/25 20:00 Room Air* 0 21 Total Intake and Output 09/07/25 09/07/25 09/08/25 15:00 23:00 07:00 Intake Total 1150 ml 240 ml Output Total 260 ml Balance 1150 ml -20 ml medications Current Medications Medications Dose Ordered Sig/Franci Route Start Time Stop Time Status Last Admin Dose Admin Ondansetron HCl 4 mg Q4HP PRN IV 09/06/25 19:45 Acetaminophen 650 mg Q6HP PRN PO 09/06/25 19:45 Nitroglycerin 0.4 mg Q5MINP PRN SL 09/06/25 19:45 Morphine Sulfate 2 mg Q30M PRN IV 09/06/25 19:45 Pravastatin Sodium 80 mg HS PO 09/06/25 22:00 09/07/25 22:31 80 MG Spironolactone 12.5 mg DAILY PO 09/07/25 10:00 09/07/25 12:15 12.5 MG Atenolol 50 mg DAILY PO 09/07/25 10:00 09/07/25 12:16 50 MG Enoxaparin Sodium 70 mg Q12HR SC 09/07/25 10:00 09/07/25 22:33 70 MG Lisinopril 10 mg DAILY PO 09/08/25 10:00 Amiodarone HCl 250 ml @ 16.66 mls/ hr Q15H1M IV 09/08/25 15:45 Examination Patient lying in bed, in no acute distress General: Lucid, afebrile, mucosae are moist Cardiovascular: Variable S1 and S2. No murmurs, gallops or rubs Respiratory: Normal ventilation mechanics. Clear lung sounds on auscultation Abdomen: Soft, nontender, no organomegaly, normal bowel sounds MSK/skin: Mobilizes 4 limbs. Skin is dry and warm Neurological: Oriented in 3 spheres. No motor no sensitive deficits. Pupils are isocoric and reactive laboratory and microbiology Laboratory Tests 09/08/25 05:45 09/07/25 10:23 Test 09/08/25 05:45 Range/Units Serum Glucose 112 H 74-106 mg/dL Problem List/Assessment/Plan Problem List/Assessment/Plan Assessment Paroxysmal atrial fibrillation with RVR (chads Vasc 4) - secondary coagulability state ADELE hemodynamically mediated (VMN) Hypertension Dyslipidemia Osteopenia IBS with diarrhea Plan/Recommendation Completed EKG which shows atrial fibrillation at 105 beats per minute with narrow QRS and no ST-elevation. Troponins x3 negative. Patient completely asymptomatic Echocardiogram completed: LVEF 60%, heavily calcified posterior mitral leaflet, moderately dilated LA, slightly dilated RV and RA Patient currently on telemetry which shows atrial fibrillation with RVR Patient currently on amiodarone drip, still did not convert to normal sinus rhythm Continued home medication. Switch bisoprolol to atenolol Anticoagulated with therapeutic enoxaparin Planning on ALEXYS with posterior electrical cardioversion on 09/08/2025 Goals of care discussed with patient for over 18 minutes: Full code status Discussed case with Dr. South, patient and nurses: Patient currently on telemetry status. Continues presenting atrial fibrillation with RVR on telemetry despite amiodarone drip. Ordered echocardiogram. Continue with amiodarone drip and therapeutic enoxaparin. Planning on completing ALEXYS with posterior electrical cardioversion on 09/08/2025. Plan discussed with: Patient, Other (Nurses) My Orders My Orders Orders - YOVANI ROB Procedure Category Date Status Time Amiodarone PHA 09/08/25 In Process 450mg/250ml Ae 15:45 Npo Except For [facility] 09/09/25 Verified Medications 00:01 Obtain Consent For: ORDERS 09/08/25 Verified 09:47 Hold Enoxaparin Day [facility] 09/09/25 Verified Of Procedu 00:01 D/C Tlc [facility] 09/08/25 Verified 09:47 Shave Both Groins [facility] 09/08/25 Verified 09:47 Provide Education [facility] 09/08/25 Verified Materials 09:47 Comprehensive LAB 09/10/25 Verified Metabolic Panel 04:00 Npo (Nothing By DIET 09/09/25 Verified Mouth) Diet Breakfast Npo (Nothing By DIET 09/08/25 Verified Mouth) Diet Lunch Obtain Consent For [facility] 09/08/25 Verified Anesthesia 09:47 Visit Coding Cardiology RES Date of Service: Sep 08, 2025 Billing Provider: JAMSHID GARCIA Sr., MD Cardiology Common Codes: [id number] HOSP CARE(High Cardiology Secondary Visit Cod: [email or web address] CARE PLAN 30 MINUTES YOVANI ROB RESIDENT Sep 08, 2025 09:50
[2025-09-08] MEDS ORDERED: AMIODARONE HCL 200 MG TAB PO SCH (10:00)
[2025-09-08] MEDS: LISINOPRIL 5 MG TAB PO SCH (10:20)
--- NOTE | 2025-09-08 10:53 | DVHPN2 ---
Progress Note Date Seen: Sep 08, 2025 Medical Necessity Reason Pt with a Central, PICC or Fol: No Subjective Patient reports: No new complaints Review of Systems: HEENT:Normal, CVS:Normal, RESPIRATORY:Normal, GI:Normal, :Normal, MSK:Normal, NEURO:Normal Objective vital signs Vital Sign Date Time Temp Pulse Resp B/P (MAP) Pulse Ox O2 Delivery O2 Flow Rate FiO2 09/08/25 10:20 130/64 09/08/25 10:18 86 09/08/25 08:37 97.8 16 94 97.8 09/07/25 20:00 Room Air* 0 21 Total Intake and Output 09/07/25 09/07/25 09/08/25 15:00 23:00 07:00 Intake Total 1150 ml 240 ml Output Total 260 ml Balance 1150 ml -20 ml medications Current Medications Medications Dose Ordered Sig/Franci Route Start Time Stop Time Status Last Admin Dose Admin Ondansetron HCl 4 mg Q4HP PRN IV 09/06/25 19:45 Acetaminophen 650 mg Q6HP PRN PO 09/06/25 19:45 Pravastatin Sodium 80 mg HS PO 09/06/25 22:00 09/07/25 22:31 80 MG Spironolactone 12.5 mg DAILY PO 09/07/25 10:00 09/08/25 10:18 12.5 MG Atenolol 50 mg DAILY PO 09/07/25 10:00 09/08/25 10:18 50 MG Enoxaparin Sodium 70 mg Q12HR SC 09/07/25 10:00 09/08/25 10:22 70 MG Lisinopril 10 mg DAILY PO 09/08/25 10:00 09/08/25 10:20 10 MG Amiodarone HCl 250 ml @ 16.66 mls/ hr Q15H1M IV 09/08/25 15:45 Magnesium Sulfate/ Dextrose 100 ml @ 100 mls/hr Q1HR IV 09/08/25 11:00 09/08/25 12:59 UNV Examination: GENERAL:Normal, HEENT:Normal, NECK:Normal, LUNGS:Normal, CVS:Normal, ABDOMEN:Normal, MSK:Normal, SKIN:Normal, NEURO:Normal, :Normal laboratory and microbiology Laboratory Tests 09/08/25 05:45 09/07/25 10:23 Test 09/08/25 05:45 Range/Units Serum Glucose 112 H 74-106 mg/dL Problem List/Assessment/Plan Problem List/Assessment/Plan #1 a fib with rvr: on amiodarone drip, lovenox, cardioversion planned #2 htn #3 obesity #4 hyperlipidemia advance care planning- full code- time spent 18 mins unstable for transfer Plan discussed with: Patient My Orders My Orders Orders - MICKIE ADEN MD Procedure Category Date Status Time Lisinopril Tablet PHA 09/08/25 In Process (Zestril Tablet) 10:00 Loperamide Capsule PHA 09/08/25 Transmitted (Imodium Capsule) 11:00 Date of Service: Sep 08, 2025 Billing Provider: MICKIE ADEN MD Common Visit Codes: [id number] INP/OBS CARE(HIGH) MICKIE ADEN MD Sep 08, 2025 10:53
[2025-09-08] MEDS ORDERED: LOPERAMIDE HCL 2 MG CAP/TAB PO PRN (11:00)
[2025-09-08] MEDS: MAGNESIUM SULFATE 1GM/100ML 100 ML IV SCH (14:24)
[2025-09-08] MEDS: LIDOCAINE VISCOUS 2% 15ML UD PO ONE (17:07)
[2025-09-08] MEDS: MIDAZOLAM HCL 2MG/2ML 2ml VIAL (1mg/ml) IV ONE (17:09)
[2025-09-08] MEDS: fentaNYL CITRATE 100 MCG/2 ML VL IV ONE (17:11)
--- NOTE | 2025-09-08 18:54 | DVHOP ---
DATE OF SURGERY: 09/08/2025 TECHNIQUE PERFORMED: * Transesophageal echocardiography. * Management of conscious sedation. * Bubble study. COMPLICATIONS: None. WHEELMAN: Assisted by our nurse is David and other assistants are Oleg Noel. MOLDING SANDER: Mere. INDICATIONS: Atrial fibrillation, did not respond to medical treatment. We need to do the electrical cardioversion. DESCRIPTION OF PROCEDURE: In a standard manner, risks and benefits have been explained. Brought to our cardiac laundry laborer, kept NPO and the patient was given lidocaine viscous, IV Versed, fentanyl. Mouthpiece was placed. Transesophageal probe was passed and we obtained view of the left ventricle, right ventricle, left and right atria, mitral, tricuspid, pulmonary, aortic valves evaluated. Carotid Doppler study was done. Bubble study was done. Study completed. There was no complication. The patient has done well. The atrial appendage is also evaluated. IMPRESSION: Ejection fraction of the left ventricle is in the range of 55%, normal right ventricle and right atrium normal mitral, triscuspid, pulmonary and aortic valve. There is no pericardial effusion. No mass. No thrombus. No vegetation. CONCLUSION: No mass, no thrombus, no vegetation. Ejection fraction 55%. Atrial appendage is normal. Normal valve. Bubble study negative. Myranda South MD MP/JOSE DE JESUS/GLENNA TID: [id number] RECEIPT: [id number] MTDD
--- NOTE | 2025-09-08 23:48 | DVHPN2 ---
Consult Progress Note Date Seen: Sep 08, 2025 Subjective Other Systems: Patient was seen and evaluated in follow up. Patient currently has no new complaints. Patient's persists with atrial fibrillation, planning on completing ALEXYS and electrical cardioversion on 09/08/2025. Telemetry reviewed. Objective vital signs Vital Sign Date Time Temp Pulse Resp B/P (MAP) Pulse Ox O2 Delivery O2 Flow Rate FiO2 09/08/25 13:00 98.1 94 16 118/71 (87) 94 98.1 09/08/25 08:00 Room Air* 0 21 Total Intake and Output 09/07/25 09/07/25 09/08/25 15:00 23:00 07:00 Intake Total 1150 ml 240 ml Output Total 260 ml Balance 1150 ml -20 ml medications Current Medications Medications Dose Ordered Sig/Franci Route Start Time Stop Time Status Last Admin Dose Admin Ondansetron HCl 4 mg Q4HP PRN IV 09/06/25 19:45 Acetaminophen 650 mg Q6HP PRN PO 09/06/25 19:45 Pravastatin Sodium 80 mg HS PO 09/06/25 22:00 09/07/25 22:31 80 MG Spironolactone 12.5 mg DAILY PO 09/07/25 10:00 09/08/25 10:18 12.5 MG Atenolol 50 mg DAILY PO 09/07/25 10:00 09/08/25 10:18 50 MG Enoxaparin Sodium 70 mg Q12HR SC 09/07/25 10:00 09/08/25 10:22 70 MG Lisinopril 10 mg DAILY PO 09/08/25 10:00 09/08/25 10:20 10 MG Amiodarone HCl 250 ml @ 16.66 mls/ hr Q15H1M IV 09/08/25 15:45 09/08/25 12:15 16.66 MLS/HR Loperamide HCl 2 mg PRN PRN PO 09/08/25 11:00 Examination: GENERAL:Normal, HEENT:Normal, NECK:Normal, LUNGS:Normal, CVS:Normal, ABDOMEN:Normal, MSK:Normal, SKIN:Normal, NEURO:Normal laboratory and microbiology Laboratory Tests 09/08/25 05:45 09/07/25 10:23 Test 09/08/25 05:45 Range/Units Serum Glucose 112 H 74-106 mg/dL Problem List/Assessment/Plan Problem List/Assessment/Plan Problem list Paroxysmal atrial fibrillation with RVR (chads Vasc 4) - secondary coagulability state. ADELE hemodynamically mediated (VMN). Hypertension. Dyslipidemia. Osteopenia. IBS with diarrhea. Plan/Recommendation Continued all current supportive medical care. Patient has been seen by Rosmery Khoury Resident on my behalf, we have discussed the plan with the patient. Completed EKG which shows atrial fibrillation at 105 beats per minute with narrow QRS and no ST-elevation. Troponins x3 negative. Patient completely asymptomatic. Echocardiogram completed: LVEF 60%, heavily calcified posterior mitral leaflet, moderately dilated LA, slightly dilated RV and RA. Patient currently on telemetry which shows atrial fibrillation with RVR. Patient currently on amiodarone drip, still did not convert to normal sinus rhythm. Continued home medication. Switch bisoprolol to atenolol. Anticoagulated with therapeutic enoxaparin. Planning on ALEXYS with posterior electrical cardioversion on 09/08/2025. Additional plan as per the hospital course. Plan discussed with: Patient Date of Service: Sep 08, 2025 Billing Provider: CHANTE WEBSTER MD Cardiology Common Codes: [id number] HOSP CARE(High CHANTE WEBSTER MD Sep 08, 2025 17:59
[2025-09-09 01:00] VITALS: BP 108/91; PULSE 52; RESP 18; TEMP 98.2; O2SAT 95
[2025-09-09 05:00] VITALS: BP 135/68; PULSE 51; RESP 18; TEMP 97.9; O2SAT 93
--- NOTE | 2025-09-09 07:17 | ECG ---
[facility] Test Date: 2025-09-08 Test Time: 17:25:05 Pat Name: MARI WAN Department: Room: 0248T A Gender: F Germ Drier: KAMRAN : 1940 Requested By: CHANTE WEBSTER Order Number: [id number] Reading MD: Measurements Intervals [place] Rate: 50 P: 38 CA: 168 QRS: -7 QRSD: 90 T: 27 QT: 452 QTc: 412 Interpretive Statements Sinus bradycardia Please click the below link to view image of tracing.
--- NOTE | 2025-09-09 07:29 | DVHOP ---
DATE OF SURGERY: 09/08/2025 TECHNIQUE PERFORMED: * Management of conscious sedation. * Electrical cardioversion. COMPLICATIONS: None. ASSISTANTS: Assisted by Sadie and ____. INDICATION FOR PROCEDURE: Atrial fibrillation ____ response to medical treatment. DESCRIPTION OF PROCEDURE: The risks and benefits have all been explained to the patient who understands very well. The patient has been brought over to the lab. The patient was kept n.p.o. IV Versed and fentanyl were given. All the electrical pads were attached with electrical cardioversion machine. The patient was being subsequently given 200 joules of synchronous shock. The patient converted to sinus bradycardia. CONCLUSION: This study have revealed that the patient converted from atrial fibrillation to sinus rhythm with electrical cardioversion. PLAN OF ACTION: Followup at this time. Advised to continue current medical treatment and outpatient followup with own doctor and the cloth washer back tender. Myranda South MD MP/AMY/SARIKA TID: [id number] RECEIPT: [id number]
[2025-09-09 08:00] VITALS: PULSE 51
[2025-09-09 09:00] VITALS: BP 136/72; PULSE 50; RESP 16; TEMP 98.2; O2SAT 94
[2025-09-09] MEDS ORDERED: AMIODARONE HCL 200 MG TAB PO SCH (10:00)
[2025-09-09] MEDS ORDERED: APIX5TAB PO (10:42)
--- NOTE | 2025-09-09 10:55 | DVHDS ---
DATE OF DISCHARGE: 09/09/2025 HISTORY OF PRESENT ILLNESS: The patient is an 84-year-old lady who is admitted with history of palpitations and elevated heart rate. She has previous history of hypertension and AFib. HOSPITAL COURSE: The patient was seen in Cardiology consult by Dr. South. Her creatinine was 1.15. The patient's toxin was negative. TSH was normal at 1.5. Chest x-ray was normal. The patient also had an echocardiogram that showed an ejection fraction of 60% with a heavily calcified mitral valve. The patient underwent cardioversion to sinus rhythm. She will now be discharged home to resume her home medications as well as to be on Eliquis 5 mg b.i.d. She will follow up with her primary and dealer card room. FINAL DIAGNOSES: * Atrial fibrillation with rapid ventricular rate with status post cardioversion. * Hypertension. * Obesity. * Hyperlipidemia. 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 Time spent in discharge planning and review of plan with the patient and nursing was 39 minutes. MD ZAHEER Beauchamp/MARIE TID: [id number] RECEIPT: [id number]
[2025-09-09 10:57] LABS: Alanine Aminotransferase 27 U/L (7-40); Albumin 4.3 g/dL (3.2-4.8); Alkaline Phosphatase 51 U/L (46-116); Anion Gap 11 (5-15); BUN/Creatinine Ratio 19.3 (10.0-20.0); Calcium 9.7 mg/dL (8.7-10.4); Carbon Dioxide 25 mmol/L (20-31); Chloride 103 mmol/L (98-107); Potassium 4.5 mmol/L (3.5-5.1); Sodium 139 mmol/L (136-145); Total Protein 6.8 g/dL (5.7-8.2)
[2025-09-09 10:58] LABS: Bilirubin, Total 0.4 mg/dL (0.2-1.0)
[2025-09-09 11:00] LABS: Blood Urea Nitrogen 27 mg/dL (9-23); Glucose 131 mg/dL (74-106)
[2025-09-09 11:09] LABS: Hematocrit 36.4 % (36.0-46.0); Hemoglobin 12.3 g/dL (12.2-16.2); Mean Corpuscular Hemoglobin 33.1 pg (28.0-32.0); Mean Corpuscular Volume 97.8 fL (80.0-100.0); Nucleated Red Blood Cells % 0.0 %
[2025-09-09 12:08] VITALS: BP 126/63; PULSE 55; TEMP 36.8
--- NOTE | 2025-09-10 11:04 | DVHPNRES ---
Progress Note Date Seen: Sep 09, 2025 Resident Creating Document: YOVANI ROB RESIDENT Medical Necessity Reason Pt with a Central, PICC or Fol: No Subjective Review of Systems Juan Daniel Guardado is a 84-year-old female patient who presents to ED with chief complaint of atrial fibrillation since by smart watch which started on Saturday09/05/2025 at 11:00 a.m.. Patient was completely asymptomatic. She has been using the watch for multiple years. She had a similar episode on November 2024, evaluated by hull line crew member indicated beta-blockers (initially atenolol then bisoprolol) and no blood thinners at that time. Patient is compliant with her medication. Denies any other associated symptom. Cardiology consulted for atrial fibrillation RVR. Past medical history: Hypertension, dyslipidemia, paroxysmal atrial fibrillation 1st diagnosed in November 2024 treated with oral medication has been normal sinus rhythm until 09/05/2025, osteopenia, IBS with diarrhea. Surgical history: Cholecystectomy Family history: Mother had [place] in heart disease in mother side. Social history: Lives in [place] with family (next of kin is son). Denies current tobacco, alcohol and other drug abuse Allergies: Simvastatin Home medication: Lisinopril 40 mg p.o. daily, hydrochlorothiazide 25 mg p.o. daily, bisoprolol 5 mg p.o. daily, spironolactone 25 mg p.o. daily, alendronate, amlodipine 5 mg p.o. daily, pravastatin, calcium Patient seen and examined at bedside. Currently has no new complaints. Patient completed ALEXYS which showed no thrombus and negative bubble study, LVEF 55%, and posterior electrical cardioversion with 200 joules converting from atrial fibrillation to sinus bradycardia. Objective vital signs Vital Sign Date Time Temp Pulse Resp B/P (MAP) Pulse Ox O2 Delivery O2 Flow Rate FiO2 09/09/25 08:05 Room Air* 0 21 09/09/25 05:00 97.9 51 18 135/68 90 93 97.9 Total Intake and Output 09/08/25 09/08/25 09/09/25 15:00 23:00 07:00 Intake Total 250 ml 525 ml 400 ml Balance 250 ml 525 ml 400 ml medications Current Medications Medications Dose Ordered Sig/Franci Route Start Time Stop Time Status Last Admin Dose Admin Ondansetron HCl 4 mg Q4HP PRN IV 09/06/25 19:45 Acetaminophen 650 mg Q6HP PRN PO 09/06/25 19:45 Pravastatin Sodium 80 mg HS PO 09/06/25 22:00 09/08/25 22:30 80 MG Spironolactone 12.5 mg DAILY PO 09/07/25 10:00 09/08/25 10:18 12.5 MG Atenolol 50 mg DAILY PO 09/07/25 10:00 09/08/25 10:18 50 MG Enoxaparin Sodium 70 mg Q12HR SC 09/07/25 10:00 09/08/25 22:28 70 MG Lisinopril 10 mg DAILY PO 09/08/25 10:00 09/08/25 10:20 10 MG Loperamide HCl 2 mg PRN PRN PO 09/08/25 11:00 Examination Patient lying in bed, in no acute distress General: Lucid, afebrile, mucosae are moist Cardiovascular: Normal S1 and S2. No murmurs, gallops or rubs Respiratory: Normal ventilation mechanics. Clear lung sounds on auscultation Abdomen: Soft, nontender, no organomegaly, normal bowel sounds MSK/skin: Mobilizes 4 limbs. Skin is dry and warm Neurological: Oriented in 3 spheres. No motor no sensitive deficits. Pupils are isocoric and reactive laboratory and microbiology Laboratory Tests 09/08/25 05:45 09/07/25 10:23 Test 09/08/25 05:45 Range/Units Serum Glucose 112 H 74-106 mg/dL Problem List/Assessment/Plan Problem List/Assessment/Plan Assessment Paroxysmal atrial fibrillation with RVR (chads Vasc 4) - secondary coagulability state - status post ALEXYS and electrical cardioversion now in sinus bradycardia ADELE hemodynamically mediated (VMN) Hypertension Dyslipidemia Osteopenia IBS with diarrhea Plan/Recommendation Completed EKG which shows atrial fibrillation at 105 beats per minute with narrow QRS and no ST-elevation. Troponins x3 negative. Patient completely asymptomatic Echocardiogram completed: LVEF 60%, heavily calcified posterior mitral leaflet, moderately dilated LA, slightly dilated RV and RA Patient currently on telemetry which shows sinus bradycardia Patient was on on amiodarone drip, still did not convert. Decided to complete ALEXYS on 09/08/2025 which showed no thrombus and negative bubble study, LVEF 55%, with posterior electrical cardioversion with 200 joules converting to sinus bradycardia Continued home medication. Switch bisoprolol to atenolol Anticoagulated with therapeutic enoxaparin Goals of care discussed with patient for over 18 minutes: Full code status Discussed case with Dr. Webster, patient and nurses: Patient currently on telemetry status. Currently in sinus bradycardia after ALEXYS and electrical cardioversion with 200 joules, continue with p.o. amiodarone and therapeutic enoxaparin. Can transition to DOACs. No further invasive cardiac workup required. Cardiology was sign off Plan discussed with: Patient, Other (Nurses) My Orders My Orders Orders - YOVANI ROB RESIDENT Procedure Category Date Status Time Npo Except For MAN 09/09/25 In Process Medications 00:01 Obtain Consent For: ORDERS 09/08/25 Transmitted 09:47 Hold Enoxaparin Day MAN 09/09/25 In Process Of Procedu 00:01 D/C Tlc [facility] 09/08/25 In Process 09:47 Shave Both Groins [facility] 09/08/25 In Process 09:47 Provide Education [facility] 09/08/25 In Process Materials 09:47 Comprehensive LAB 09/10/25 Verified Metabolic Panel 04:00 Obtain Consent For [facility] 09/08/25 In Process Anesthesia 09:47 Complete Blood Count LAB 09/09/25 Logged 09:16 Comprehensive LAB 09/09/25 Logged Metabolic Panel 09:16 Visit Coding Cardiology RES Date of Service: Sep 09, 2025 Billing Provider: CHANTE WEBSTER MD Cardiology Common Codes: [id number] HOSP CARE(High Cardiology Secondary Visit Cod: [id number] CARE PLAN 30 MINUTES YOVANI ROB RESIDENT Sep 09, 2025 09:24 CHANTE WEBSTER MD Sep 10, 2025 01:00
--- NOTE | 2025-09-10 11:07 | DVHDS2 ---
Discharge Summary Date of Admission Sep 06, 2025 at 19:32 Date of Discharge: Sep 09, 2025 Labs/Diagnostic Data: Laboratory Results Test 09/09/25 10:04 09/08/25 05:45 09/07/25 12:22 09/07/25 12:21 Magnesium Level 1.7 mg/dL (1.6-2.6) Urine Color Light-yellow (Yellow) Urine Clarity Clear (Clear) Urine pH 5.5 (5.0-9.0) Urine Specific [place] 1.009 (1.001-1.035) Urine Protein Negative (Negative) Urine Ketones Negative (Negative) Urine Blood Negative /uL (Negative) Urine Nitrite Negative (Negative) Urine Bilirubin Negative (Negative) Urine Urobilinogen Normal mg/dL (Negative) Urine Leukocyte Esterase Negative /uL (Negative) Urine RBC <1 /hpf (0 - 4) Urine Microscopic WBC 1 /HPF (0-5) Urine Squamous Epithelial Cells Few /hpf (<5) Urine Bacteria None seen /hpf (None Seen) Urine Glucose Normal mg/dL (Normal) Urine Opiates Screen Neg (NEGATIVE) Urine Fentanyl Screen Neg (NEGATIVE) Urine Barbiturates Screen Neg (NEGATIVE) Urine Phencyclidine Screen Neg (NEGATIVE) Urine Amphetamines Screen Neg (NEGATIVE) Urine Benzodiazepines Screen Neg (NEGATIVE) Urine Cocaine Screen Neg (NEGATIVE) Urine Cannabinoids Screen Neg (NEGATIVE) Test 09/07/25 10:23 09/07/25 10:12 09/06/25 15:36 Eosinophils (%) (Auto) 2.3 % (0.0-7.0) Eosinophils # (Auto) 0.1 10 ^3/uL (0-0.8) Basophils # (Auto) 0 10 ^3/uL (0-0.2) Nucleated Red Blood Cells 0.1 % Prothrombin Time 11.2 sec (9.3-11.8) Prothrombin Time INR 1.06 (0.9-1.15) Activated Partial Thromboplast Time 25.7 SEC (24.5-34.5) Phosphorus Level 3.7 mg/dL (2.4-5.1) B-Type Natriuretic Peptide 186.63 pg/mL (0-100) Vitamin B12 Level 821 pg/mL (211-911) Vitamin D 25-Hydroxy 42.7 ng/mL (30.0-100) Hemoglobin A1c 5.6 % A1C (<5.7) Troponin I High Sensitivity 6 ng/L (</=34) Triglycerides Level 151 mg/dL (< 150) Cholesterol Level 142 mg/dL (< 200) LDL Cholesterol 70 mg/dL (< 100) HDL Cholesterol 50 mg/dL (40-59) Thyroid Stimulating Hormone (TSH) 1.59 uIU/mL (0.55-4.78) Brief Hx & Hospital Course: SEE DICTATED NOTE Condition at Discharge: Fair Final Diagnosis/Problems List A FIB Discharge Disposition: Home Discharge Instruct/Medications Diet: Cardiac 2g Na,low cholest Activity: No Restrictions, As Tolerated Follow Up/Referral: FU WITH PCP/CARDIOLOGY Medications: RESUME HOME MEDS SCRIPT TO PHARMACY Scheduled Alendronate Sodium (Alendronate Sodium), 1 TAB PO QWEEKLY, (Reported) Amlodipine Besylate (Amlodipine Besylate), 1 TAB PO DAILY, (Reported) Aspirin (Aspirin Low Dose), 1 TAB PO DAILY, (Reported) Bisoprolol Fumarate (Bisoprolol Fumarate), 1 TAB PO DAILY, (Reported) Hydrochlorothiazide (Hydrochlorothiazide), 1 TAB PO DAILY, (Reported) Potassium Chloride (Potassium Chloride Cr), 10 MEQ PO BID, (Reported) Spironolactone (Spironolactone), 1 TAB PO DAILY, (Reported) Discharge Statement: "Patient was advised to return to the ER or call 911 if any headaches, dizziness, shortness of breath, chest pain, abdominal pain, bleeding, fevers, or worsening of medical condition. Patient was counseled about treatment plan, medications, possible side effects, patientverbalized understanding. All questions were answered to the best of my ability. This discharge took greater then 30 minutes in planning, reviewing documen tation, counseling the patient, and discussing with other team members." ASSESSMENT ASSESSMENT Assessment A FIB Date of Service: Sep 09, 2025 Billing Provider: MICKIE ADEN MD Common Visit Codes: [id number]/OBS DISCH DAY >30min MICKIE ADEN MD Sep 09, 2025 10:41
--- NOTE | 2025-09-10 11:32 | DVHPN2 ---
Progress Note - Dictate Date Seen: Sep 09, 2025 Medical Necessity Reason Pt with a Central, PICC or Fol: No Subjective Patient was seen and evaluated in follow up. Patient underwent electrical cardioversion (200 joules). This study have revealed that the patient converted from atrial fibrillation to sinus rhythm with electrical cardioversion. Followup at this time. Advised to continue current medical treatment and outpatient followup with own doctor and the copper flotation operator. ALEXYS: No mass, no thrombus, no vegetation. Ejection fraction 55%. Atrial appendage is normal. Normal valve. Bubble study negative. BUN 27, SEWER BUILDER 1.40. Telemetry reviewed. vital signs Vital Sign Date Time Temp Pulse Resp B/P (MAP) Pulse Ox O2 Delivery O2 Flow Rate FiO2 09/09/25 12:08 36.8 55 09/09/25 11:38 126/63 09/09/25 09:00 16 94 09/09/25 08:05 Room Air* 0 21 Total Intake and Output 09/08/25 09/08/25 09/09/25 15:00 23:00 07:00 Intake Total 250 ml 525 ml 400 ml Balance 250 ml 525 ml 400 ml medications Current Medications Medications Dose Ordered Sig/Franci Route Start Time Stop Time Status Last Admin Dose Admin Ondansetron HCl 4 mg Q4HP PRN IV 09/06/25 19:45 Acetaminophen 650 mg Q6HP PRN PO 09/06/25 19:45 Pravastatin Sodium 80 mg HS PO 09/06/25 22:00 09/08/25 22:30 80 MG Spironolactone 12.5 mg DAILY PO 09/07/25 10:00 09/09/25 11:37 12.5 MG Atenolol 50 mg DAILY PO 09/07/25 10:00 09/08/25 10:18 50 MG Enoxaparin Sodium 70 mg Q12HR SC 09/07/25 10:00 09/09/25 11:41 70 MG Lisinopril 10 mg DAILY PO 09/08/25 10:00 09/09/25 11:38 10 MG Loperamide HCl 2 mg PRN PRN PO 09/08/25 11:00 Amiodarone HCl 200 mg Q12HR PO 09/09/25 10:00 objective GENERAL: Alert and oriented x 3. No acute distress. EYES: PERRL, EOMI. Anicteric. HENT: Moist mucous membranes. LUNGS: Clear to auscultation bilaterally. CARDIOVASCULAR: Regular rate and rhythm. ABDOMEN: Soft, nontender and nondistended. EXTREMITIES: No edema. NEUROLOGIC: No focal neurological deficits. SKIN: Warm, dry. laboratory and microbiology Laboratory Tests 09/09/25 10:04 Test 09/09/25 10:04 Range/Units Serum Glucose 131 H 74-106 mg/dL Problem List Paroxysmal atrial fibrillation with RVR (chads Vasc 4) - secondary coagulability state - status post ALEXYS and electrical cardioversion now in sinus bradycardia. AEDLE hemodynamically mediated (VMN). Hypertension. Dyslipidemia . Osteopenia . IBS with diarrhea. Assessment/Plan Continued all current supportive medical care. Patient has been seen by Rosmery Khoury Resident on my behalf, we have discussed the plan with the patient. Completed EKG which shows atrial fibrillation at 105 beats per minute with narrow QRS and no ST-elevation. Troponins x3 negative. Patient completely asymptomatic. Echocardiogram completed: LVEF 60%, heavily calcified posterior mitral leaflet, moderately dilated LA, slightly dilated RV and RA. Patient currently on telemetry which shows sinus bradycardia. Patient was on on amiodarone drip, still did not convert. Decided to complete ALEXYS on 09/08/2025 which showed no thrombus and negative bubble study, LVEF 55%, with posterior electrical cardioversion with 200 joules converting to sinus bradycardia. Continued home medication. Switch bisoprolol to atenolol. Anticoagulated with therapeutic enoxaparin. Additional plan as per the hospital course. Date of Service: Sep 09, 2025 Billing Provider: CHANTE WEBSTER MD Cardiology Common Codes: [id number] HOSP CARE(High Plan discussed with: Patient CHANTE WEBSTER MD Sep 09, 2025 12:22
== END 2025-09-09 12:45 | disposition home or self-care (01) | DRG 308 ==
LOC: ER 11:16 → OVERFLOW 19:32 → TELE-EAST 21:44
PROVIDERS: ADMIT Internal Medicine; ATTEND Internal Medicine
PROC: B24BZZ4 Ultrasonography of Heart with Aorta, Transesophageal (ICD-10-PCS; principal; 2025-09-08)
PROC: 5A2204Z Restoration of Cardiac Rhythm, Single (ICD-10-PCS; 2025-09-08)
DX: I48.0 Paroxysmal atrial fibrillation (principal); N17.0 Acute kidney failure with tubular necrosis; K58.0 Irritable bowel syndrome with diarrhea; M85.80 Other specified disorders of bone density and structure, unspecified site; E78.5 Hyperlipidemia, unspecified; E66.9 Obesity, unspecified; N18.30 Chronic kidney disease, stage 3 unspecified; I12.9 Hypertensive chronic kidney disease with stage 1 through stage 4 chronic kidney disease, or unspecified chronic kidney disease; Z79.899 Other long term (current) drug therapy; Z82.49 Family history of ischemic heart disease and other diseases of the circulatory system; Z90.49 Acquired absence of other specified parts of digestive tract; Z79.01 Long term (current) use of anticoagulants; Z68.31 Body mass index [BMI] 31.0-31.9, adult
CPT/HCPCS: 36415; 71045; 80048; 80053; 80061; 80307; 81001; 82306; 82607; 83036; 83735; 83880; 84100; 84443; 84484; 85025; 85610; 85730; 92960; 93005; 93306; 93312; 96365; 96368; 99152; 99291; 99292; G0378; J2250; J3470